=== PATIENT | male | born 1965 | race Caucasian/White ===

== ENCOUNTER 2021-01-19 23:24 | Emergency (ER) | payer MEDICAID ==
[~2021-01-19] VITALS: Ht 170.2 cm; Wt 73.0 kg
[2021-01-20] MEDS ORDERED: KETOROLAC 30MG/ML VIAL IV STA (00:03)
[2021-01-20] MEDS ORDERED: SODIUM CHLORIDE 0.9% 1,000 ML IV ONE (00:15)
[2021-01-20 01:50] LABS: CHLORIDE 108 mEq/L (98-107)
[2021-01-20 01:52] LABS: BASOPHILS % 0.7 % (0.0-2.0); EOSINOPHILS % 1.2 % (0.0-5.0); HEMATOCRIT. 39.8 % (42.0-52.0); HEMOGLOBIN. 14.1 g/dL (14.0-18.0); LYMPHOCYTES % 27.4 % (20.0-50.0); MEAN CORPUSCULAR HEMOGLOBIN 33.9 pg (28.0-32.0); MEAN CORPUSCULAR VOLUME 95.3 fL (80.0-94.0); MEAN PLATELET VOLUME 9.9 fl (7.4-10.4); MONOCYTES % 8.1 % (2.0-8.0); NEUTROPHILS % 62.6 % (40.0-76.0); PLATELET 167 x1000/uL (130-400); RED BLOOD CELL COUNT 4.17 mill/uL (4.7-6.1); RED CELL DISTRIBUTION WIDTH 13.1 % (11.6-14.6)
[2021-01-20 01:59] LABS: PARTIAL THROMBOPLASTIN TIME 31.9 sec (23.4-31.0); PROTHROMBIN TIME 11.2 sec (9.6-11.0)
[2021-01-20] MEDS ORDERED: ONDANSETRON HCL 4MG/2ML INJ IV STA (03:19)
[2021-01-20] MEDS ORDERED: MORPHINE SULFATE 4 MG/ML CPJ (NOT FOR IM USE) IV STA (03:19)
[2021-01-20] MEDS ORDERED: HYDROCODONE/ACETAMINOPHEN 5/325MG TABLET PO PRN (14:00)
[2021-01-20] MEDS ORDERED: ONDANSETRON HCL 4MG/2ML INJ IV PRN (14:00)
[2021-01-20] MEDS ORDERED: MORPHINE SULFATE 2 MG/ML CPJ (NOT FOR IM USE) IV PRN (14:00)
[2021-01-20] MEDS ORDERED: LORAZEPAM 2MG/ML CPJ IV PRN (14:00)
[2021-01-20] MEDS ORDERED: ACETAMINOPHEN 325MG TABLET PO PRN (14:00)
[2021-01-20] MEDS ORDERED: HYDR-4009 MT (14:09)
[2021-01-20] MEDS ORDERED: NALOXONE HCL 0.4MG/ML VIAL IV PRN (14:15)
[2021-01-20 16:30] VITALS: BP 142/84
[2021-01-21] MEDS ORDERED: THIAMINE HCL 100MG TABLET PO SCH (09:00)
== END 2021-01-20 16:34 | disposition home or self-care (01) ==
LOC: ER 23:24 → CANBEDREQ 01-20 14:30 → ER 01-20 16:34
DX: S82.032A Displaced transverse fracture of left patella, initial encounter for closed fracture (principal); F10.129 Alcohol abuse with intoxication, unspecified; Z20.822 Contact with and (suspected) exposure to COVID-19; Y90.6 Blood alcohol level of 120-199 mg/100 ml; E87.8 Other disorders of electrolyte and fluid balance, not elsewhere classified; E11.8 Type 2 diabetes mellitus with unspecified complications; Z72.0 Tobacco use; W01.0XXA Fall on same level from slipping, tripping and stumbling without subsequent striking against object, initial encounter; Y93.89 Activity, other specified; Y92.89 Other specified places as the place of occurrence of the external cause; Z79.4 Long term (current) use of insulin
CPT/HCPCS: 36415; 73562; 80053; 80320; 83036; 85025; 85610; 85730; 86850; 86900; 86901; 87426; 96361; 96374; 96375; 99285; J1885; J2270; J2405; J7030; L1830; G0480